=== PATIENT | female | born 1970 | race Caucasian/White ===

== ENCOUNTER 2017-05-03 19:25 | Emergency (ER) | payer MEDICAID ==
[2017-05-03 19:46] VITALS: BP 133/70
--- NOTE | 2017-05-03 20:13 | UC ---
Skin Complaint HPI - HPI Summary HPI Summary: Pt presents with hemorrhoids. Says that she has had these off and on since her 6 years ago. Uses rectal cream and sitz bath with great relief. Would like a referral to a surgeon for removal. No blood in stool. 04/11 pain. 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 - History of Current Complaint Chief Complaint: UCSkin Time Seen by Provider: 05/03/17 20:05 Stated Complaint: HEMORRHOIDS Hx Obtained From: Patient Hx Last Menstrual Period: 04/15/17 ?: No Onset/Duration: Gradual Onset Onset Severity: Severe Current Severity: Severe Pain Intensity: 10 Pain Scale Used: 0-10 Numeric Location: Discrete - Perianal Aggravating Factor(s): Touch, Other - Standing Alleviating Factor(s): OTC Meds - Allergy/Home Medications Allergies/Adverse Reactions: Allergies Allergy/AdvReac Type Severity Reaction Status Date / Time No Known Allergies Allergy Verified 05/03/17 19:46 Home Medications: Home Medications Hemorrhoid Cream* PRN 05/03/17 [History] Ibuprofen TAB* [Advil TAB*] 400 mg PO ONCE PRN 05/03/17 [History Confirmed 05/03] Review of Systems Constitutional: Negative Skin: Negative Respiratory: Negative Cardiovascular: Negative Genitourinary: Other - Perianal pain Neurological: Negative Psychological: Negative Is Patient Immunocompromised?: No All Other Systems Reviewed And Are Negative: Yes PMH/Surg Hx/FS Hx/Imm Hx Previously Healthy: Yes - Surgical History Surgical History: Yes Surgery Procedure, Year, and Place: ovarian cyst - Family History Known Family History: Positive: Unknown - Social History Occupation: Employed Full-time Lives: With Family Alcohol Use: Rare Substance Use Type: None Smoking Status (MU): Never Smoked Tobacco Physical Exam Triage Information Reviewed: Yes Appearance: Well-Appearing, Well-Nourished Vital Signs: Initial Vital Signs Temp 98.1 F 05/03/17 19:43 Pulse 73 05/03/17 19:43 Resp 16 05/03/17 19:43 BP 133/70 05/03/17 19:43 Pulse Ox 100 05/03/17 19:43 Vital Signs Reviewed: Yes Respiratory: Positive: Chest non-tender, Lungs clear, Normal breath sounds, No respiratory distress, No accessory muscle use Cardiovascular: Positive: RRR, No Murmur, Pulses Normal - Additional Comments Rectal exam accompanied by Floyd RN: TTP thrombosed external hemorrhoids one at 3:00 and one at 6:00. Both approx 1cm in diameter. No bleeding. No internal hemorrhoids appreciated - internal exam limited due to pain. Course/Dx - Course Course Of Treatment: Tx with sitz bath and hydrocortisone cream BID. Refer to surgeon for consult - Differential Diagnoses - Skin Complaint Differential Diagnoses: Other - Prolapse - Diagnoses Provider Diagnoses: External thrombosed hemorrhoids Discharge - Discharge Plan Condition: Stable Disposition: HOME Prescriptions: Hemorrhoidal OINT* [Preparation H*] 1 tube TOPICAL Q12H PRN #1 tube PRN Reason: Pain Patient Education Materials: Hemorrhoids (ED) Forms: *Work Release Referrals: Madi Cardenas NP [Primary Care Provider] - Godfrey Maldonado MD [Medical Doctor] - As Soon As Possible Additional Instructions: 1) Apply cream twice a day 2) Sitz bath 3) Out of work tomorrow and monday 4) Please call the Surgeon's office for a follow up appointment regarding surgical removal. If you develop a fever, SOB, chest pain, new or worsening symptoms - please call our office or go to ED
== END 2017-05-03 20:31 | disposition home or self-care (01) ==
LOC: UCEAST 19:25
DX: K64.5 Perianal venous thrombosis (principal)
CPT/HCPCS: 99212; G0463

== ENCOUNTER 2018-06-16 20:21 | Emergency (ER) | payer OTHER ==
[2018-06-16 20:29] VITALS: BP 130/73
[2018-06-16] MEDS ORDERED: Fluorescein Sodium TOPICAL* 1 MG TEST STRIP OPHTHALMIC ONE (20:33)
[2018-06-16] MEDS ORDERED: Tetracaine 0.5% OPTH.SOL 4 ML* 1 DROP BTL LEFT EYE ONE (20:33)
[2018-06-16] MEDS ORDERED: Eye Irrigation Solution 30 ML BOTTLE LEFT EYE ONE (20:33)
--- NOTE | 2018-06-16 20:53 | UC ---
Eye Complaint HPI - HPI Summary HPI Summary: 48 y/o female presents to the urgent care c/o trying to remove contact lens and scratching her left eye. She is not sure if the contact lens still in there. But she has a burning sensation w/ yellowish eye discharge. She has been trying to remove it for the past 2 hrs. Her eye is very red. She has a lot of discomfort. Pt denies eye pain visual disturbance, photophobia, LANDEROS, dizziness, URI, SOB, chest pain, abdominal pain, N/V/d. - History of Current Complaint Chief Complaint: UCEye Stated Complaint: EYE COMPLAINT Time Seen by Provider: 06/16/18 20:35 Hx Obtained From: Patient Hx Last Menstrual Period: 05/25/18 Onset/Duration: Gradual Onset, Lasting Hours - 2hrs Timing: Hours - 2hrs ago Severity Initially: Mild Severity Currently: Mild Pain Intensity: 3 Pain Scale Used: 0-10 Numeric Location of Injury: Conjunctiva - left conjunctiva w/ redness and yellowish eye discharge Character: Foreign Body Sensation Aggravating Factor(s): Blinking Alleviating Factor(s): Nothing Associated Signs And Symptoms: Positive: Drainage (Purulent) - left eye. Negative: Photophobia, Vision Impairment Bilateral, Fever, Swelling - Risk Factors Penetrating Injury Risk Factor: Negative Globe Rupture Risk Factors: Negative Acute Glaucoma Risk Factors: Negative Optic Artery Occlusion Risk Factors: Negative - Allergies/Home Medications Allergies/Adverse Reactions: Allergies Allergy/AdvReac Type Severity Reaction Status Date / Time No Known Allergies Allergy Verified 06/16/18 20:29 Home Medications: Home Medications Vitamin For Eyes* 1 tab PO DAILY 06/16/18 [History Confirmed 06/16/18] PMH/Surg Hx/FS Hx/Imm Hx Previously Healthy: Yes - Pt denies PMHX - Surgical History Surgical History: Yes Surgery Procedure, Year, and Place: ovarian cyst - Family History Known Family History: Positive: Hypertension, Diabetes Family History: dyslipidemia - Social History Occupation: Employed Full-time Lives: With Family Alcohol Use: None Substance Use Type: None Smoking Status (MU): Never Smoked Tobacco - Immunization History Hx Tetanus, Diphtheria Vaccination: Yes - 2018 Review of Systems All Other Systems Reviewed And Are Negative: Yes Constitutional: Positive: Negative Skin: Positive: Negative Eyes: Positive: Drainage - yellowish, Eye Redness - left eye w/ yellowish drainage and discomfort. pt thinks contact lenses still in there. Negative: Photophobia ENT: Positive: Negative Respiratory: Positive: Negative Cardiovascular: Positive: Negative Gastrointestinal: Positive: Negative Genitourinary: Positive: Negative Motor: Positive: Negative Neurovascular: Positive: Negative Musculoskeletal: Positive: Negative Neurological: Positive: Negative Psychological: Positive: Negative Is Patient Immunocompromised?: No Physical Exam - Summary Physical Exam Summary: Vital Signs Reviewed: Yes General: Well appearing, well nourished female in no apparent pain distress Eyes: Positive: left conjunctiva red- Visual acuity: WNL,Visual milian: full to confrontation. PERRLA, EOMI intact w/out limitation or complaint of pain. eyelashes clear. mild tearing and yellowish drainage observed. No ciliary flush. No chemosis, No photophobia. Normal fundoscopic exam; no proptosis, exophthalmos, nystagmus. No foreign body observed w/ the naked eye ENT: Positive: Normal ENT inspection, Hearing grossly normal, Pharynx normal, Nasal congestion, Nasal drainage - clear, TMs normal - B/L external ear canal clear , TM's WNL. Negative: Tonsillar swelling, Tonsillar exudate Neck: Positive: Supple, Nontender, No Lymphadenopathy Respiratory: Positive: Chest nontender, Lungs clear, Normal breath sounds, No respiratory distress Cardiovascular: Positive: RRR, No Murmur, Pulses Normal, Brisk Capillary Refill Abdomen Description: Positive: Nontender, No Organomegaly, Soft. Negative: CVA Tenderness (R), CVA Tenderness (L) Bowel Sounds: Positive: Present Musculoskeletal: Positive: Strength Intact, ROM Intact, No Edema Neurological Exam: Normal Psychological Exam: Normal Skin Exam: Normal Triage Information Reviewed: Yes Vital Signs: Initial Vital Signs Temp 98 F 06/16/18 20:25 Pulse 67 06/16/18 20:25 Resp 16 06/16/18 20:25 BP 130/73 06/16/18 20:25 Pulse Ox 99 06/16/18 20:25 Eye Complaint Course/Dx - Course Course Of Treatment: 48 y/o female presents to the urgent care c/o trying to remove contact lens and scratching her left eye. She is not sure if the contact lens still in there. But she has a burning sensation w/ yellowish eye discharge. She has been trying to remove it for the past 2 hrs. Her eye is very red. She has a lot of discomfort. Pt denies eye pain visual disturbance, photophobia, LANDEROS, dizziness, URI, SOB, chest pain, abdominal pain, N/V/d. Hx obtained. Pt w/ LF eye with inflamed conjunctiva and yellowish eye discharge. B /L PERRLA, EOMI w/o any nystagmus or strabismus. Fundi appears benign. Disks are well delineated. There are no hemorrhages or exudates. Visual acuity is 20 /20 bilaterally, and visual milian are within normal limits. No foreign body under eyelids observed with naked eye. 2 drops of Tetracaine optha drops placed on Pts left eye, then irrigated with saline drops to flush any foreign particles, then fluorescein instillation and examination with a UV lamp. Positive corneal abrasion observed at 2-4 oclock. No foreign body identified. After procedure Pt felt better. Pt Rx Erythromycin ophthalmic ointment. P tgiven eye patch for omfort x 1 day. and advised to f/u at [facility] in 1-2 days. d/c instructions explained. Pt understood and agreed w/ plan of care. - Differential Dx/Diagnosis Differential Diagnosis/HQI/PQRI: Conjunctivitis, Corneal Abrasion, Foreign Body , Penetrating Injury, Orbital Cellulitis Provider Diagnosis: Eye foreign body, Corneal abrasion due to contact lens Discharge - Sign-Out/Discharge Documenting (check all that apply): Patient Departure - d/c home All imaging exams completed and their final reports reviewed: No Studies - Discharge Plan Condition: Stable Disposition: HOME Prescriptions: Erythromycin TOPICAL GEL* [Erythromycin OPTH OINT*] 1 applic TOPICAL TID #1 oint Patient Education Materials: Corneal Abrasion (ED) Referrals: [facility] [place] [facility] [place]] Jasbir Younger MD [Medical Doctor] - 1 Day Additional Instructions: 1-Please apply ophthalmic ointment in your LF eye as directed. Keep you eye w/ eye patch only for 1 day. 2- Take Tylenol PO as directed to alleviate symptoms of pain and swelling 3- Please f/u with chief supply chain officer Dr Younger in 1-2 days for further evaluation and treatment on your corneal abrasion - Billing Disposition and Condition Condition: STABLE Disposition: Home
[2018-06-16] MEDS ORDERED: Erythromycin OPTH OINT* APPLIC OINT ONE (21:19)
[2018-06-17] MEDS ORDERED: Erythromycin OPTH OINT* APPLIC OINT LEFT EYE SCH (09:00)
== END 2018-06-16 21:35 | disposition home or self-care (01) ==
LOC: UCEAST 20:21
DX: S05.02XA Injury of conjunctiva and corneal abrasion without foreign body, left eye, initial encounter (principal); T15.92XA Foreign body on external eye, part unspecified, left eye, initial encounter; X58.XXXA Exposure to other specified factors, initial encounter; Y92.9 Unspecified place or not applicable
CPT/HCPCS: 99212; A9270-GY; G0463

== ENCOUNTER 2018-12-21 09:48 | Emergency (ER) | payer OTHER ==
[2018-12-21 09:57] VITALS: BP 102/66
[2018-12-21] MEDS ORDERED: Ibuprofen TAB* 400 MG PO ONE (10:40)
--- NOTE | 2018-12-21 11:48 | UC ---
Back Pain HPI - HPI Summary HPI Summary: 48 y/o female presents to the urgent care c/o low back pain and right foot pain for the past 3 weeks w/o improvement. 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 For the past 3 days, she has noticed lower back pain has increased in severity. Also she states her heel is painful when she stands for long periods of time. Thins morning when she woke up, she was limping due to pain. She doesn't know if they are related. Heel pain now is 8/10 sharp. She took an Ibuprofen 400mg PO this morning which helped. Lower back pain radiated sometimes to her RT thigh. Pt denies numbness or tingling sensation over the lower extremities, saddle anesthesia, fecal or urinary incontinence, fever, calf pain, SOB, chest pain, abdominal pain, N/V/d. Pt can move RT knee and RT ankle w/o any problem. - History of Current Complaint Chief Complaint: UCLowerExtremity Stated Complaint: BACK PAIN, AND FOOT PAIN Time Seen by Provider: 12/21/18 10:26 Hx Obtained From: Patient Hx Last Menstrual Period: 12/17/18 Onset/Duration: Gradual Onset, Lasting Weeks - 3 weeks of intermittent lower back, Still Present, Worse Since - today left heel pain Timing: Constant Severity Initially: Mild Severity Currently: Moderate Pain Intensity: 8 Pain Scale Used: 0-10 Numeric Back Pain: Is Discrete @ - lower back pain RT>LF, Radiates To - RT thigh Character: Sharp Aggravating Factor(s): Movement, Lifting, Walking Alleviating Factor(s): Rest, OTC Meds Associated Signs And Symptoms: Positive: Other - RT heel pain. Negative: Swelling, Redness, Bruising, Fever, Weakness, Numbness, Tingling, Abdominal Pain , Flank Pain, Bladder Incontinence, Bowel Incontinence, Weight Loss, Pain with Weight Bearing - Risk Factors AAA Risk Factors: Negative TAD Risk Factors: Negative Cauda Equina Risk Factors: Negative Epidural Abscess Risk Factors: Negative - Allergies/Home Medications Allergies/Adverse Reactions: Allergies Allergy/AdvReac Type Severity Reaction Status Date / Time No Known Allergies Allergy Verified 12/21/18 09:58 PMH/Surg Hx/FS Hx/Imm Hx Previously Healthy: Yes - Pt denies PMHX - Surgical History Surgical History: Yes Surgery Procedure, Year, and Place: ovarian cyst - Family History Known Family History: Positive: Hypertension, Diabetes Family History: dyslipidemia - Social History Occupation: Employed Full-time Lives: With Family Alcohol Use: None Substance Use Type: None Smoking Status (MU): Never Smoked Tobacco - Immunization History Hx Tetanus, Diphtheria Vaccination: Yes - 2018 Review of Systems All Other Systems Reviewed And Are Negative: Yes Constitutional: Positive: Negative Skin: Positive: Negative Eyes: Positive: Negative ENT: Positive: Negative Respiratory: Positive: Negative Cardiovascular: Positive: Negative Gastrointestinal: Positive: Negative Genitourinary: Positive: Negative Motor: Positive: Negative Neurovascular: Positive: Negative Musculoskeletal: Positive: Decreased ROM - lower back, Other: - lower back pain s/p heavy lifting and RT heel pain worse w/ walking Neurological: Positive: Negative Psychological: Positive: Negative Is Patient Immunocompromised?: No Physical Exam - Summary Physical Exam Summary: Vital Signs Reviewed: Yes Appearance: Well-Appearing, Well-Nourished, female sitting in the examining table w/o any apparent distress. Eyes: Positive: Conjunctiva Clear - PERRLA, EOMI. ENT: Positive: Normal ENT inspection, Hearing grossly normal, Pharynx normal, TMs normal, Uvula midline Neck: Positive: Supple, Nontender, No Lymphadenopathy Respiratory: Positive: Chest non-tender, Lungs clear, Normal breath sounds, No respiratory distress Cardiovascular: Positive: RRR, No Murmur, Pulses Normal, Brisk Capillary Refill Abdomen Description: Positive: Nontender, No Organomegaly, Soft. Negative: CVA Tenderness (R), CVA Tenderness (L) Bowel Sounds: Positive: Present Musculoskeletal: Positive: Strength Intact, Other: - BACK: Patient walked into the urgent care room with symmetric ambulation, No signs of limping, antalgic, able to bear weight. No signs of trauma, No masses palpated. Point tenderness at the level of L5-S1, positive paraspinal muscle tenderness and spasm at the same level. No CVAT, no flank ecchymosis . No sacroiliac notch tenderness, No saddle anesthesia.ROM: limited due to pain, Straight Leg Raise: negative. Patellar reflexes: brisk, symmetric Muscle strength lower extremities. Dorsiflexion/ plantar flexion of ankles. Heel/ toe walk. Lower extremities: Femoral, popliteal, posterior tibial, and dorsalis pedis pulses WNL. Pt refuse rectal exam Neurological: Positive: Alert, Muscle Tone Normal Psychological Exam: Normal Skin Exam: Normal Triage Information Reviewed: Yes Vital Signs: Initial Vital Signs Temp 98 F 12/21/18 09:55 Pulse 72 12/21/18 09:55 Resp 16 12/21/18 09:55 BP 102/66 12/21/18 09:55 Pulse Ox 98 12/21/18 09:55 Back Pain Course/Dx - Course Course Of Treatment: 48 y/o female presents to the urgent care c/o low back pain and right foot pain for the past 3 weeks w/o improvement. 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 For the past 3 days, she has noticed lower back pain has increased in severity. Also she states her heel is painful when she stands for long periods of time. Thins morning when she woke up, she was limping due to pain. She doesn't know if they are related. Heel pain now is 8/10 sharp. She took an Ibuprofen 400mg PO this morning which helped. Lower back pain radiated sometimes to her RT thigh. Pt denies numbness or tingling sensation over the lower extremities, saddle anesthesia, fecal or urinary incontinence, fever, calf pain, SOB, chest pain, abdominal pain, N/V/d. Pt can move RT knee and RT ankle w/o any problem.Hx obtained. Pt is hemodynamically stable, A&OX3. PE: Point tenderness at the level of the L5-S1 and left paraspinal muscle spasm at the same level on examination. test ordered: negative. Lumbosacral X-ray ordered, IMPRESSION: HEEL SPUR. NO ACUTE OSSEOUS INJURY. IF SYMPTOMS PERSIST, RECOMMEND REPEAT IMAGING. Also MILD FACET OSTEOARTHRITIS MOST PRONOUNCED ALONG THE LOWER LUMBAR SPINE. Ibuprofen PO ordered at the clinic. Given by nurse. Pt tolerated well medication pain decrease. Pt Rx Ibuprofen PO, flexeril PO. Pt givne crutches and RT foot inmmobilzed w/ NIRAV bandage by me and give a post-op shoe to alleviate symptoms. Patient was instructed to the f/u [facility] orthopedic from [facility] Medicine for further evaluation and treatment since she will probably benefit from PT. Patient understands and agrees. Plan of care was discussed with the patient and patient understands and agrees. All questions were answered at patient satisfaction. Pt left clinic hemodynamically stable and ambulating w/ help of crutches. - Differential Dx/Diagnosis Differential Diagnosis/HQI/PQRI: Compressive Cord Syndrome, Fracture, Herniated Disc, Renal Colic, Strain, Sprain, Other - plantar faciitis, heel spur Provider Diagnosis: Low back strain, Osteoarthritis of lower back, Heel spur Discharge - Sign-Out/Discharge Documenting (check all that apply): Patient Departure - D/c home All imaging exams completed and their final reports reviewed: Yes - Discharge Plan Condition: Stable Disposition: HOME Prescriptions: Cyclobenzaprine TAB* [Flexeril 10 MG TAB*] 10 mg PO TID PRN #21 tab PRN Reason: Spasms - Back Ibuprofen TAB* [Motrin TAB* 800 MG] 800 mg PO Q6H PRN #30 tab PRN Reason: back pain Patient Education Materials: Osteoarthritis (ED), Heel Spur (ED) Forms: *Work Release Referrals: [facility] [place] [facility] [Outside] - 3 Days [facility] [Provider Group] - 3 Days Additional Instructions: 1- Please take Ibuprofen PO q6-8hrs prn as directed after meals for pain. 2- Take Flexeril PO as directed for muscle spasm. Please do not drive while taking the medication. 3- Wear a back support. Avoid strenuous exercise of heavy lifting. 4- Please keep your RT foot immobilized w/ Nirva bandage and post-op shoe. Use the crutches to avoid weihgt bearing until symptoms resolve. apply ice to decrease inflammation. 5- Please follow up with Orthopedic Dr from Sports Medicine in 3 days if not improvement of symptoms, for further management. - Billing Disposition and Condition Condition: STABLE Disposition: Home
== END 2018-12-21 12:00 | disposition home or self-care (01) ==
LOC: UCEAST 09:48
DX: S39.012A Strain of muscle, fascia and tendon of lower back, initial encounter (principal); X50.3XXA Overexertion from repetitive movements, initial encounter; Y93.9 Activity, unspecified; Y92.89 Other specified places as the place of occurrence of the external cause; Y99.0 Civilian activity done for income or pay; M77.8 Other enthesopathies, not elsewhere classified; M47.816 Spondylosis without myelopathy or radiculopathy, lumbar region
CPT/HCPCS: 72110; 84702; 99213; A9270-GY; G0463